=== PATIENT | male | born 1990 | race African-American/Black ===

== ENCOUNTER 2019-05-12 22:16 | Inpatient (IN) | payer MEDICAID ==
[~2019-05-12] VITALS: Ht 193 cm; Wt 104.3 kg
[2019-05-13] MEDS ORDERED: ONDANSETRON HCL 4MG/2ML INJ IV ONE (01:30)
[2019-05-13] MEDS ORDERED: KETOROLAC 30MG/ML VIAL IV ONE (01:30)
[2019-05-13] MEDS ORDERED: SODIUM CHLORIDE 0.9% 1,000 ML IV ONE (01:30)
[2019-05-13] MEDS ORDERED: MORPHINE SULFATE 10 MG/ML CPJ IV ONE (01:30)
[2019-05-13 01:53] LABS: CHLORIDE 102 mEq/L (98-107)
[2019-05-13 01:54] LABS: BASOPHILS % 0.3 % (0.0-2.0); EOSINOPHILS % 0.2 % (0.0-5.0); HEMATOCRIT. 41.9 % (42.0-52.0); HEMOGLOBIN. 14.2 g/dL (14.0-18.0); LYMPHOCYTES % 7.5 % (20.0-50.0); MEAN CORPUSCULAR HEMOGLOBIN 30.6 pg (28.0-32.0); MEAN PLATELET VOLUME 8.9 fl (7.4-10.4); MONOCYTES % 8.9 % (2.0-8.0); NEUTROPHILS % 83.1 % (40.0-76.0); PLATELET 219 x1000/uL (130-400); RED BLOOD CELL COUNT 4.65 mill/uL (4.7-6.1); RED CELL DISTRIBUTION WIDTH 13.8 % (11.6-14.6)
[2019-05-13 03:01] LABS: *BARBITURATES SCREEN URINE NEGATIVE (NEGATIVE); *BENZODIAZEPINES SCREEN URINE NEGATIVE (NEGATIVE); *COCAINE SCREEN URINE PRESUMTIVE POSITIVE (NEGATIVE); CANNABINOID URINE SCREEN PRESUMTIVE POSITIVE (NEGATIVE); METHADONE URINE SCREEN NEGATIVE (NEGATIVE); OPIATES URINE SCREEN NEGATIVE (NEGATIVE); PHENCYCLIDINE URINE SCREEN NEGATIVE (NEGATIVE)
[2019-05-13 03:03] LABS: *AMPHETAMINES SCREEN URINE NEGATIVE (NEGATIVE)
[2019-05-13] MEDS ORDERED: CLINDAMYCIN 600 MG in DEXTROSE 5% WATER 50 ML IV ONE (04:00)
[2019-05-13] MEDS ORDERED: IOHEXOL-300 100 ML BOTTLE ONE (04:01)
[2019-05-13] MEDS ORDERED: CLINDAMYCIN 600 MG in SODIUM CHLORIDE 0.9% 50 ML IV NR (04:45)
[2019-05-13 08:38] VITALS: BP 131/85
[2019-05-13] MEDS ORDERED: MORPHINE SULFATE 2 MG/ML CPJ (NOT FOR IM USE) IV PRN (08:45)
[2019-05-13] MEDS ORDERED: ONDANSETRON HCL 4MG TABLET PO PRN (08:45)
[2019-05-13 12:00] VITALS: BP 131/77
[2019-05-13] MEDS ORDERED: HYDROCODONE/ACETAMINOPHEN 10/325MG TABLET PO SCH (13:15)
[2019-05-13 15:43] LABS: CLARITY URINE CLEAR (CLEAR); COLOR URINE YELLOW (YELLOW); KETONES URINE TRACE (NEGATIVE); LEUKOCYTE ESTERASE URINE NEGATIVE (NEGATIVE); NITRITE URINE NEGATIVE (NEGATIVE); OCCULT BLOOD URINE NEGATIVE (NEGATIVE); PROTEIN URINE NEGATIVE (NEGATIVE)
[2019-05-13] MEDS: DOCUSATE SODIUM 250MG CAPSULE PO SCH (18:04)
[2019-05-13] MEDS: HYDROCODONE/ACETAMINOPHEN 5/325MG TABLET PO PRN ×2 (18:05→22:46)
[2019-05-13 20:00] VITALS: BP 116/64
[2019-05-13] MEDS ORDERED: PIPERACILLIN/TAZOBACTAM 3.375 G in DEXT 5% WATER 100 ML IV STA (21:27)
[2019-05-13] MEDS ORDERED: MAGNESIUM CITRATE 300ML SOLUTION PO NR (22:00)
[2019-05-13] MEDS: PIPERACILLIN/TAZOBACTAM 3.375 G in DEXT 5% WATER 100 ML IV SCH (23:07)
[2019-05-13] MEDS: DEXT 5%/0.45% NACL 1000ML 1,000 ML IV SCH (23:07)
[2019-05-14] VITALS: BP 110/60
[2019-05-14 04:00] VITALS: BP 108/62
[2019-05-14 06:49] LABS: CHLORIDE 104 mEq/L (98-107)
[2019-05-14] MEDS: PIPERACILLIN/TAZOBACTAM 3.375 G in DEXT 5% WATER 100 ML IV SCH ×4 (06:56→23:17)
[2019-05-14 07:19] LABS: HEMATOCRIT. 41.5 % (42.0-52.0); MEAN CORPUSCULAR HEMOGLOBIN 30.4 pg (28.0-32.0); MEAN CORPUSCULAR VOLUME 90.1 fL (80.0-94.0); MEAN PLATELET VOLUME 8.8 fl (7.4-10.4); PLATELET 193 x1000/uL (130-400); RED CELL DISTRIBUTION WIDTH 13.4 % (11.6-14.6)
[2019-05-14] MEDS: DOCUSATE SODIUM 250MG CAPSULE PO SCH (10:21)
[2019-05-14] MEDS: DEXT 5%/0.45% NACL 1000ML 1,000 ML IV SCH (12:43)
[2019-05-14] MEDS: HYDROCODONE/ACETAMINOPHEN 5/325MG TABLET PO PRN ×2 (12:45→22:24)
[2019-05-14] MEDS ORDERED: LIDOCAINE HCL 1% 20ML VIAL (Pyxis) INJ ONE (19:20)
[2019-05-14] MEDS ORDERED: BUPIVACAINE HCL/PF 0.5% (5MG/ML) 10ML ONE (19:21)
[2019-05-14 20:00] VITALS: BP 122/62
[2019-05-14] MEDS ORDERED: MIDAZOLAM HCL 2 MG/2 ML VIAL ONE (20:08)
[2019-05-14] MEDS ORDERED: NORMAL SALINE 0.9% 10 ML SYR ONE (20:15)
[2019-05-14] MEDS ORDERED: BACITRACIN 50,000 UNITS/VIAL ONE (20:15)
[2019-05-14] MEDS ORDERED: SUCCINYLCHOLINE CHLORIDE 200MG/10ML IV ONE (20:16)
[2019-05-14] MEDS ORDERED: FENTANYL CITRATE/PF 50MCG/ML 2ML VIAL ONE ×2 (20:16→20:26)
[2019-05-14] MEDS ORDERED: PROPOFOL 200MG/20ML VIAL IV ONE (20:16)
[2019-05-14 20:39] LABS: PLATELET ESTIMATE NORMAL
[2019-05-15] VITALS: BP 111/69
[2019-05-15 04:00] VITALS: BP 116/61
[2019-05-15] MEDS: PIPERACILLIN/TAZOBACTAM 3.375 G in DEXT 5% WATER 100 ML IV SCH (05:31)
[2019-05-15 07:33] LABS: BASOPHILS % 0.4 % (0.0-2.0); EOSINOPHILS % 4.3 % (0.0-5.0); HEMATOCRIT. 39.4 % (42.0-52.0); HEMOGLOBIN. 13.3 g/dL (14.0-18.0); LYMPHOCYTES % 15.8 % (20.0-50.0); MEAN CORPUSCULAR HEMOGLOBIN 30.7 pg (28.0-32.0); MEAN CORPUSCULAR VOLUME 91.1 fL (80.0-94.0); MEAN PLATELET VOLUME 8.6 fl (7.4-10.4); MONOCYTES % 11.1 % (2.0-8.0); NEUTROPHILS % 68.4 % (40.0-76.0); PLATELET 192 x1000/uL (130-400); RED BLOOD CELL COUNT 4.32 mill/uL (4.7-6.1); RED CELL DISTRIBUTION WIDTH 13.5 % (11.6-14.6)
[2019-05-15 08:00] VITALS: BP 117/69
[2019-05-15 08:17] LABS: CHLORIDE 109 mEq/L (98-107)
[2019-05-15] MEDS: DOCUSATE SODIUM 250MG CAPSULE PO SCH (08:57)
== END 2019-05-15 10:00 | disposition left against medical advice (07) | DRG 226 ==
LOC: ER 22:16 → 6EST 05-13 04:53 → ENRESERV 05-13 07:44
PROVIDERS: ADMIT Internal Medicine; ATTEND Internal Medicine
PROC: 0D9Q0ZZ Drainage of Anus, Open Approach (ICD-10-PCS; principal; 2019-05-14)
PROC: 0DJD8ZZ Inspection of Lower Intestinal Tract, Via Natural or Artificial Opening Endoscopic (ICD-10-PCS; 2019-05-14)
DX: S36.63XA Laceration of rectum, initial encounter (principal); E87.1 Hypo-osmolality and hyponatremia; T74.21XA Adult sexual abuse, confirmed, initial encounter; S31.119A Laceration without foreign body of abdominal wall, unspecified quadrant without penetration into peritoneal cavity, initial encounter; K61.0 Anal abscess; D72.829 Elevated white blood cell count, unspecified; K62.5 Hemorrhage of anus and rectum; F12.10 Cannabis abuse, uncomplicated; Z53.29 Procedure and treatment not carried out because of patient's decision for other reasons; F14.10 Cocaine abuse, uncomplicated; F17.210 Nicotine dependence, cigarettes, uncomplicated; Y93.89 Activity, other specified; Y92.89 Other specified places as the place of occurrence of the external cause; Y99.8 Other external cause status; Z71.6 Tobacco abuse counseling; Z71.51 Drug abuse counseling and surveillance of drug abuser
CPT/HCPCS: 36415; 74177; 80048; 80305; 80320; 81003; 87070; 87075; 99285; J0330; J1885; J2250; J2270; J2405; J2543; J2704; J3010; J3490; J7030; J7060; Q9967; G0480